=== PATIENT | female | born 1970 | race Caucasian/White ===

== ENCOUNTER → 2017-07-06 | Outpatient (CLI) | payer OTHER ==
[~2017-07-06] MED LIST: ATOR10TA PO; DIAZ5TAB PO; INSU100I28 SC; LEVO150T PO; LIRA0.6P2 SC; OXYC5CAP2 PO; PRED20TA PO
== END | disposition home or self-care (01) ==
LOC: LAB 09:34
PROVIDERS: ATTEND Nurse Practitioner Family
DX: E10.65 Type 1 diabetes mellitus with hyperglycemia (principal)
CPT/HCPCS: 36415; 82947; 83519; 84681; 86337; 86341

== ENCOUNTER → 2017-12-17 | Outpatient (CLI) | payer OTHER | END | disposition home or self-care (01) | LOC: CFH 08:27 | PROVIDERS: ATTEND Nurse Practitioner Family | DX: Z12.31 Encounter for screening mammogram for malignant neoplasm of breast (principal) | CPT/HCPCS: 77067 ==

== ENCOUNTER → 2018-12-19 | Outpatient (CLI) | payer OTHER | END | disposition home or self-care (01) | LOC: CFH 07:15 | PROVIDERS: ATTEND Nurse Practitioner Family | DX: Z12.31 Encounter for screening mammogram for malignant neoplasm of breast (principal) | CPT/HCPCS: 77067 ==

== ENCOUNTER 2020-10-08 18:38 | Emergency (ER) | payer OTHER ==
[~2020-10-08] VITALS: Ht 170.2 cm; Wt 76.3 kg
--- NOTE | 2020-10-08 19:15 | NUR ---
called pt to room from lobby
--- NOTE | 2020-10-08 19:25 | NUR ---
called pt to room from lobby- not in lobby
--- NOTE | 2020-10-08 19:43 | NUR ---
called pt to room from lobby- not in lobby
--- NOTE | 2020-10-08 19:52 | NUR ---
pt was in car waiting, sugar mccartney called and had phone number to alert pt.
[2020-10-08] MEDS ORDERED: DEXAMETHASONE 4 MG/ML, 1ML IV ONE (20:00)
[2020-10-08] MEDS ORDERED: DEXAMETHASONE 4 MG/ML, 1ML ONE (20:09)
--- NOTE | 2020-10-08 20:24 | NUR ---
PT TO ROOM, C/O NO TASTE OR SMELL NO OTHER S/S, MEDS ORDERED
[2020-10-08] MEDS ORDERED: BAMLANIVIMAB 700 MG in SODIUM CHLORIDE 0.9% 250 ML IVPB ONE (20:30)
[2020-10-08] MEDS ORDERED: FILTER 0.22 MICRON IV ONE (20:30)
--- NOTE | 2020-10-08 20:54 | NUR ---
PT TOLERATING IV MEDICATION WELL VSS
--- NOTE | 2020-10-08 21:38 | NUR ---
iv medcomplete at this time
--- NOTE | 2020-10-08 21:53 | NUR ---
pt continues in nad no s/s reaction
[2020-10-08] MEDS ORDERED: DOXYCYCLINE 100MG TABLET PO ONE (22:00)
[2020-10-08 22:47] VITALS: BP 136/79
== END 2020-10-08 22:49 | disposition home or self-care (01) ==
LOC: ED 19:15
DX: U07.1 COVID-19 (principal); J12.9 Viral pneumonia, unspecified; J15.9 Unspecified bacterial pneumonia; E10.9 Type 1 diabetes mellitus without complications; R94.31 Abnormal electrocardiogram [ECG] [EKG]
CPT/HCPCS: 71045; 87635; 93005; 96374; 99285; J1100; J7050; M0239; Q0239; U0003

== ENCOUNTER → 2020-11-18 | Outpatient (CLI) | payer OTHER | END | disposition home or self-care (01) | LOC: CFH 15:36 | PROVIDERS: ATTEND Nurse Practitioner Family | DX: Z12.31 Encounter for screening mammogram for malignant neoplasm of breast (principal); N63.21 Unspecified lump in the left breast, upper outer quadrant | CPT/HCPCS: 77063; 77067 ==

== ENCOUNTER → 2020-12-16 | Outpatient (CLI) | payer OTHER | END | disposition home or self-care (01) | LOC: CFH 14:07 | PROVIDERS: ATTEND Family Medicine | DX: N63.23 Unspecified lump in the left breast, lower outer quadrant (principal); R92.8 Other abnormal and inconclusive findings on diagnostic imaging of breast | CPT/HCPCS: 76642; 77065 ==

== ENCOUNTER 2021-01-22 08:15 | Outpatient (CLI) | payer OTHER ==
[2021-01-22] MEDS ORDERED: LIDOCAINE 1%, 20ML ONE (08:30)
[2021-01-22] MEDS ORDERED: LIDOCAINE 1%-EPI 1:100K, 20ML ONE (08:30)
== END 2021-01-22 23:59 | disposition home or self-care (01) ==
LOC: CFH 08:15
PROVIDERS: ATTEND Family Medicine
DX: C50.412 Malignant neoplasm of upper-outer quadrant of left female breast (principal); E11.9 Type 2 diabetes mellitus without complications; E78.5 Hyperlipidemia, unspecified; E03.9 Hypothyroidism, unspecified; Z17.0 Estrogen receptor positive status [ER+]; Z88.0 Allergy status to penicillin; Z88.8 Allergy status to other drugs, medicaments and biological substances; Z79.4 Long term (current) use of insulin; Z79.899 Other long term (current) drug therapy; Z90.710 Acquired absence of both cervix and uterus; Z98.890 Other specified postprocedural states
CPT/HCPCS: 19083; 77065; 88305; J3490

== ENCOUNTER → 2021-02-14 | Outpatient (CLI) | payer OTHER ==
[~2021-02-14] MED LIST changes: +DOCU100T6 PO; +DULO60CA7 PO; +Insulin Pump SC; +synthroid PO
== END | disposition home or self-care (01) ==
LOC: RAD 08:31
PROVIDERS: ATTEND Nurse Practitioner Family
DX: M25.511 Pain in right shoulder (principal)

== ENCOUNTER → 2021-02-14 | Outpatient (CLI) | payer OTHER ==
[2021-02-14 09:34] LABS: BASOPHILS % (AUTO) 1 % (0-1); EOSINOPHILS % (AUTO) 2 % (1-7); LYMPHOCYTES % (AUTO) 24 % (22-44); MEAN CORPUSCULAR HEMOGLOBIN 30.4 pg (27.0-34.8); MEAN PLATELET VOLUME 8.1 fL (7.4-10.4); MONOCYTES % (AUTO) 17 % (2-9); NEUTROPHILS % (AUTO) 56 % (42-75); PLATELET COUNT 304 x10^3/uL (130-400); RED BLOOD COUNT 4.86 x10^6/uL (3.82-5.3); RED CELL DISTRIBUTION WIDTH 13.6 % (9.6-15.2)
[2021-02-14 09:39] LABS: MD NO
[2021-02-14 09:45] LABS: INTERNATIONAL NORMALIZED RATIO 0.97 (0.93-1.1); PROTHROMBIN TIME 10.4 Seconds (9.6-11.5)
== END | disposition home or self-care (01) ==
LOC: STAR 08:25
PROVIDERS: ATTEND Surgery
DX: Z01.818 Encounter for other preprocedural examination (principal); C50.412 Malignant neoplasm of upper-outer quadrant of left female breast; Z85.3 Personal history of malignant neoplasm of breast; Z85.820 Personal history of malignant melanoma of skin; Z20.822 Contact with and (suspected) exposure to COVID-19; Z88.0 Allergy status to penicillin
CPT/HCPCS: 36415; 84703; 85025; 85610; 93005; U0003; U0005

== ENCOUNTER 2021-02-20 12:22 | Observation (INO) | payer OTHER ==
[2021-02-17 10:02] LABS: ALANINE AMINOTRANSFERASE 22 U/L (12-78); ALBUMIN 3.5 g/dL (3.4-5.0); ANION GAP 6 mmol/L (5-15); CALCIUM 9.3 mg/dL (8.5-10.1); CHLORIDE 106 mmol/L (98-107); CREATININE 0.97 mg/dL (0.55-1.02)
[2021-02-17 10:03] LABS: ALKALINE PHOSPHATASE 59 U/L (45-117); BILIRUBIN,TOTAL 0.6 mg/dL (0.2-1.0); TOTAL PROTEIN 7.4 g/dL (6.4-8.2)
[~2021-02-20] VITALS: Ht 170.2 cm; Wt 75.1 kg
[2021-02-20] MEDS ORDERED: CHLORHEXIDINE 15 ML UDC ONE (12:58)
[2021-02-20] MEDS ORDERED: ACETAMINOPHEN 500 MG TABLET ONE (13:06)
[2021-02-20] MEDS ORDERED: ACETAMINOPHEN 500 MG TABLET PO ONE (13:30)
[2021-02-20] MEDS ORDERED: DIAZEPAM 5 MG TABLET PO ONE (13:30)
[2021-02-20] MEDS ORDERED: CHLORHEXIDINE 15 ML UDC PO ONE (14:00)
[2021-02-20] MEDS ORDERED: LACTATED RINGERS 1,000 ML IV SCH (14:00)
[2021-02-20] MEDS ORDERED: FENTANYL PF 250 MCG/5ML ONE (14:07)
[2021-02-20] MEDS ORDERED: MIDAZOLAM 1 MG/ML, 2ML ONE (14:07)
[2021-02-20] MEDS ORDERED: BUPIVACAINE/PF 0.5% ONE (14:39)
[2021-02-20] MEDS ORDERED: EPINEPHRINE 1 MG/ML, 1ML ONE (14:39)
[2021-02-20] MEDS ORDERED: GENTAMICIN 80 MG/2 ML ONE (14:53)
[2021-02-20] MEDS ORDERED: CEFTRIAXONE 1,000 MG ONE (14:53)
[2021-02-20] MEDS ORDERED: ISOSULFAN BLUE 10 MG/ML, 5ML IV ONE (14:53)
[2021-02-20] MEDS ORDERED: BACITRACIN 50,000 UNIT ONE (14:53)
[2021-02-20] MEDS ORDERED: DEXAMETHASONE 4 MG/ML, 1ML ONE ×2 (15:19→16:21)
[2021-02-20] MEDS ORDERED: HYDROmorphone 1 MG/ML, 1ML INJ ONE (16:16)
[2021-02-20] MEDS ORDERED: ROCURONIUM 10MG/ML,5ML ONE (16:21)
[2021-02-20] MEDS ORDERED: PROPOFOL 10 MG/ML, 20ML ONE (16:21)
[2021-02-20] MEDS ORDERED: ONDANSETRON 2MG/ML, 2ML ONE (16:21)
[2021-02-20] MEDS ORDERED: GLYCOPYRROLATE 0.2MG/1ML, 5ML ONE (16:21)
[2021-02-20] MEDS ORDERED: CEFAZOLIN 1,000 MG ONE (16:21)
[2021-02-20] MEDS ORDERED: SUCCINYLCHOLINE 20 MG/ML, 10ML ONE (16:21)
[2021-02-20] MEDS ORDERED: NEOSTIGMINE 1 MG/ML, 10ML ONE (16:21)
[2021-02-20] MEDS ORDERED: ONDANSETRON 2MG/ML, 2ML IVPush PRN ×3 (16:30→20:36)
[2021-02-20] MEDS ORDERED: FENTANYL PF 100 MCG/2ML IV PRN (16:30)
[2021-02-20] MEDS ORDERED: PROMETHAZINE 25 MG SUPP PR PRN (16:30)
[2021-02-20] MEDS ORDERED: LORazepam 2 MG/ML, 1ML IVPush PRN (16:30)
[2021-02-20] MEDS ORDERED: METHOCARBAMOL 1,000 MG in DEXTROSE 5% 100 ML IV PRN (16:30)
[2021-02-20] MEDS ORDERED: HYDROmorphone 1 MG/ML, 1ML INJ IVPush PRN (16:30)
[2021-02-20] MEDS ORDERED: HALOPERIDOL 5 MG/ML IV PRN (16:30)
[2021-02-20] MEDS ORDERED: ACETAMINOPHEN 325 MG TABLET PO PRN ×3 (16:30→20:37)
[2021-02-20] MEDS ORDERED: OXYcodone 5 MG/5 ML ORAL.SOL UDC PO PRN (16:30)
[2021-02-20] MEDS ORDERED: PROMETHAZINE 25 MG/ML, 1ML IVPush PRN (16:30)
[2021-02-20] MEDS ORDERED: PROPOFOL 50 ML ONE (17:44)
[2021-02-20] MEDS ORDERED: INSULIN SINGLE DOSE, ER ONE (19:08)
[2021-02-20] MEDS ORDERED: FENTANYL PF 100 MCG/2ML ONE (19:08)
[2021-02-20] MEDS ORDERED: INSULIN REGULAR 100 UNITS/ML, 3ML VIAL SQ-INSULIN ONE ×2 (19:30→21:30)
[2021-02-20] MEDS ORDERED: IBUPROFEN 600 MG TABLET PO PRN (20:30)
[2021-02-20] MEDS ORDERED: HYDROcodone/APAP 5/325 TABLET PO PRN ×2 (20:30→20:35)
[2021-02-20] MEDS ORDERED: ONDANSETRON 4 MG TABLET PO PRN (21:00)
[2021-02-20] MEDS ORDERED: ATORVASTATIN 10 MG TABLET PO SCH (21:00)
[2021-02-20] MEDS ORDERED: MORPHINE SULFATE 4 MG/ML, 1ML IV PRN (21:00)
[2021-02-20] MEDS ORDERED: D5%-0.45NACL+KCL 20MEQ 1,000 ML IV SCH (21:00)
[2021-02-20] MEDS ORDERED: MELATONIN 5 MG TABLET PO PRN (23:00)
[2021-02-21] MEDS: CEFAZOLIN PMX 2GM/50ML 50 ML IVPB SCH ×2 (00:14→07:35)
[2021-02-21 00:31] VITALS: BP 119/79
[2021-02-21] MEDS ORDERED: LACTATED RINGERS 1,000 ML IV SCH (02:00)
[2021-02-21 08:39] VITALS: BP 103/65
[2021-02-21] MEDS ORDERED: DOCUSATE 100 MG CAPSULE PO PRN (09:00)
[2021-02-21] MEDS ORDERED: DULOXETINE 30 MG CAPSULE.DR PO SCH (09:00)
[2021-02-21] MEDS ORDERED: LEVOTHYROXINE 137 MCG TABLET PO SCH (09:00)
== END 2021-02-21 10:33 | disposition home or self-care (01) ==
LOC: SDC 12:22 → EDSTATUS 15:30 → 4NW 19:30 → SDC 20:50 → 4NW 20:51 → DCLOUNGE 02-21 10:27
PROVIDERS: ADMIT Surgery; ATTEND Surgery
DX: C50.412 Malignant neoplasm of upper-outer quadrant of left female breast (principal); E11.9 Type 2 diabetes mellitus without complications; E78.5 Hyperlipidemia, unspecified; E03.9 Hypothyroidism, unspecified; Z90.710 Acquired absence of both cervix and uterus; Z88.0 Allergy status to penicillin; Z85.3 Personal history of malignant neoplasm of breast; Z85.820 Personal history of malignant melanoma of skin; Z17.0 Estrogen receptor positive status [ER+]; Z90.13 Acquired absence of bilateral breasts and nipples; Z79.899 Other long term (current) drug therapy
CPT/HCPCS: 19303; 19340; 36415; 38500; 38792; 38900; 80053; 82962; 88305; 88307; 88333; 96365; 96366; 96375; A9541; C1729; C1762; C1789; G0378; J0171; J0690; J0696; J1100; J1170; J1580; J1815; J2250; J2405; J2704; J2710; J3010; J7120; S0020; A9552; J0330

== ENCOUNTER 2021-03-27 14:42 | Day surgery (SDC) | payer OTHER ==
[~2021-03-27] VITALS: Ht 170.2 cm; Wt 73.7 kg
[2021-03-27 16:01] VITALS: BP 143/83
[2021-03-27] MEDS ORDERED: CHLORHEXIDINE 15 ML UDC ONE (16:03)
[2021-03-27] MEDS ORDERED: TAMO20TA PO (16:05)
[2021-03-27] MEDS ORDERED: LACTATED RINGERS 1,000 ML IV SCH (16:30)
[2021-03-27] MEDS ORDERED: CHLORHEXIDINE 15 ML UDC PO ONE (16:30)
[2021-03-27] MEDS ORDERED: MIDAZOLAM 1 MG/ML, 2ML ONE (17:21)
[2021-03-27] MEDS ORDERED: BUPIVACAINE/PF 0.5% ONE (17:33)
[2021-03-27] MEDS ORDERED: EPINEPHRINE 1 MG/ML, 1ML ONE (17:33)
[2021-03-27] MEDS ORDERED: DIPHENHYDRAMINE 50 MG/ML, 1ML IVPush PRN (18:00)
[2021-03-27] MEDS ORDERED: HYDROmorphone 1 MG/ML, 1ML INJ IVPush PRN (18:00)
[2021-03-27] MEDS ORDERED: MEPERIDINE/PF 25MG/0.5ML IVPush PRN (18:00)
[2021-03-27] MEDS ORDERED: ONDANSETRON 2MG/ML, 2ML IVPush PRN (18:00)
[2021-03-27] MEDS ORDERED: DIAZEPAM 5 MG/ML, 2ML IVPush PRN (18:00)
[2021-03-27] MEDS ORDERED: OXYcodone 5 MG/5 ML ORAL.SOL UDC PO PRN (18:00)
[2021-03-27] MEDS ORDERED: ACETAMINOPHEN 325 MG TABLET PO PRN (18:00)
[2021-03-27] MEDS ORDERED: ONDANSETRON 2MG/ML, 2ML ONE (18:02)
[2021-03-27] MEDS ORDERED: PROPOFOL 10 MG/ML, 20ML ONE (18:02)
[2021-03-27] MEDS ORDERED: CEFAZOLIN 1,000 MG ONE (18:02)
[2021-03-27] MEDS ORDERED: FENTANYL PF 250 MCG/5ML ONE (18:09)
[2021-03-27] MEDS ORDERED: BUPIVACAINE/PF-EPI 0.5% 1:200K INFIL ONE (18:24)
[2021-03-27] MEDS ORDERED: PROMETHAZINE 25 MG/ML, 1ML IVPush PRN (19:00)
[2021-03-27] MEDS ORDERED: METOCLOPRAMIDE 5 MG/ML, 2ML IVPush PRN (19:00)
[2021-03-27] MEDS ORDERED: OXYcodone 5 MG/5 ML ORAL.SOL UDC ONE (19:22)
[2021-03-27] MEDS ORDERED: ACETAMINOPHEN 650 MG/20.3 ML UDC ONE (19:22)
[2021-03-27] MEDS ORDERED: FENTANYL PF 100 MCG/2ML ONE (19:22)
[2021-03-27] MEDS: FENTANYL PF 100 MCG/2ML IV PRN ×2 (19:25→19:30)
[2021-03-27] MEDS ORDERED: HYDROmorphone 1 MG/ML, 1ML INJ ONE (19:35)
[2021-03-27] MEDS ORDERED: METOCLOPRAMIDE 5 MG/ML, 2ML ONE (19:44)
== END 2021-03-27 20:50 | disposition home or self-care (01) ==
LOC: OR 14:42
PROVIDERS: ATTEND Plastic Surgery
DX: T85.41XA Breakdown (mechanical) of breast prosthesis and implant, initial encounter (principal); E11.65 Type 2 diabetes mellitus with hyperglycemia; E78.5 Hyperlipidemia, unspecified; E03.9 Hypothyroidism, unspecified; Z20.822 Contact with and (suspected) exposure to COVID-19; Z79.899 Other long term (current) drug therapy; Z85.3 Personal history of malignant neoplasm of breast; Z88.0 Allergy status to penicillin; Z88.8 Allergy status to other drugs, medicaments and biological substances; Z90.13 Acquired absence of bilateral breasts and nipples; Z98.890 Other specified postprocedural states; Y83.8 Other surgical procedures as the cause of abnormal reaction of the patient, or of later complication, without mention of misadventure at the time of the procedure
CPT/HCPCS: 11971; 14301; 14302; 87635; C1729; J0171; J0690; J1170; J2250; J2405; J2704; J2765; J3010; J7120